=== PATIENT | female | born 1995 | race African-American/Black ===

== ENCOUNTER 2017-12-22 14:53 | Emergency (ER) | payer MEDICAID ==
[~2017-12-22] VITALS: Ht 162.6 cm; Wt 56.0 kg
[2017-12-22 15:03] VITALS: BP 107/43
== END 2017-12-22 19:49 | disposition left against medical advice (07) ==
LOC: ER 19:00
DX: Z53.21 Procedure and treatment not carried out due to patient leaving prior to being seen by health care provider (principal)

== ENCOUNTER 2019-03-24 09:32 | Emergency (ER) | payer MEDICAID ==
[~2019-03-24] VITALS: Ht 162.6 cm; Wt 54.7 kg
[2019-03-24 10:20] VITALS: BP 115/83
== END 2019-03-24 11:41 | disposition left against medical advice (07) ==
LOC: ER 09:32
DX: Z53.21 Procedure and treatment not carried out due to patient leaving prior to being seen by health care provider (principal)

== ENCOUNTER 2019-06-21 15:41 | Emergency (ER) | payer MEDICAID, OTHER ==
[~2019-06-21] VITALS: Ht 162.6 cm; Wt 57.0 kg
[2019-06-21 15:47] VITALS: BP 106/58
== END 2019-06-22 00:30 | disposition left against medical advice (07) ==
LOC: ER 15:41
DX: R10.9 Unspecified abdominal pain (principal); Z53.21 Procedure and treatment not carried out due to patient leaving prior to being seen by health care provider